=== PATIENT | male | born 1975 | race Caucasian/White ===

== ENCOUNTER 2020-11-26 13:35 | Emergency (ER) | payer BC, SELFPAY ==
--- NOTE | ~2020-11-26 | CT_ITS ---
EXAMINATION: CT cervical spine wo con DATE: 11/26/2020 14:38 INDICATION: Neck pain as well as pain, numbness and tingling at the left elbow TECHNIQUE: Computed tomography (CT) of the cervical spine was performed without intravenous contrast. Automated exposure control and iterative reconstruction technique were employed. The dose-length pro duct was 453.71 mGy-cm. COMPARISON: None FINDINGS: 1-2 mm retrolisthesis C4 on C5. Chronic appearing anterior wedging at C4, C5 and T1 with 20% anterior vertebral body height loss. No acute fracture. Moderate disc height loss at C5-C6 and C6-C7. Mild to moderate disc height loss at C4-C5 and disc height loss at C2-C3 and C3-C4 and in the upper thoracic spine. Suggestion of a 3 x 1.8 cm slightly hypodense left thyroid mass. Cervical soft tissues are ot herwise unremarkable. Visualized airway and apices of lungs are clear. The following disc levels are specifically discussed: C2-C3: The disc does not extend beyond the endplate margin. There is mild bilateral uncovertebral china nt osteoarthritis. There is mild bilateral facet joint osteoarthritis. There is no neural foraminal s tenosis. There is no central canal stenosis. C3-C4: Disc is mildly bulging. There is moderate bilateral uncovertebral joint osteoarthritis. There is mild bilateral facet joint osteoarthritis. There is mild bilateral neural foraminal stenosis. Ther e is minimal central canal stenosis. C4-C5: Disc is bulging. There is moderate right and severe left uncovertebral joint osteoarthritis. T here is mild bilateral facet joint osteoarthritis. There is moderate right and mild to moderate left neural foraminal stenosis. There is mild central canal stenosis. C5-C6: Disc is bulging. There is moderate left and severe right uncovertebral joint osteoarthritis. T here is mild bilateral facet joint osteoarthritis. There is mild left and mild to moderate right neur al foraminal stenosis. There is mild central canal stenosis. C6-C7: Disc is bulging. There is mild right and moderate left uncovertebral joint osteoarthritis. The re is mild left and mild to moderate right facet joint osteoarthritis. There is mild left and minimal right neural foraminal stenosis. There is mild central canal stenosis. C7-T1: The disc does not extend beyond the endplate margin. There is no uncovertebral joint osteoarth ritis. There is mild to moderate bilateral facet joint osteoarthritis. There is no neural foraminal s tenosis. There is no central canal stenosis. IMPRESSION: 1. Chronic appearing mild anterior wedging at C4, C5 and T1. No acute osseous abnormality. 2. Mild to moderate cervical spondylosis. Reviewed, dictated and finalized at location A. IMPRESSION: 1. Chronic appearing mild anterior wedging at C4, C5 and T1. No acute osseous a bnormality. 2. Mild to moderate cervical spondylosis.
[2020-11-26 13:56] VITALS: BP 158/104; PULSE 108; RESP 18; TEMP 37.1; O2SAT 96
--- NOTE | 2020-11-26 15:11 | ED.GENADULT ---
HPI - General Adult General Chief complaint: Extremity Problem,Nontraumatic <Jovan Lopez PA-C - Last Filed: 11/26/20 16:36> Stated complaint: left arm pain <Jovan Lopez PA-C - Last Filed: 11/26/20 16:36> Time Seen by Provider: 11/26/20 14:01 <Jovan Lopez PA-C - Last Filed: 11/26/20 16:36> Source: patient, RN notes reviewed and old records reviewed <Jovan Lopez PA-C - Last Filed: 11/26/20 16:36> Mode of arrival: ambulatory <Jovan Lopez PA-C - Last Filed: 11/26/20 16:36> Limitations: no limitations <Jovan Lopez PA-C - Last Filed: 11/26/20 16:36> History of Present Illness HPI narrative: Patient is a 45-year-old male who presents to emergency department for evaluation of neck pain patient notes he has had this pain for over a week he states that she developed the pain which is localized to the left elbow to the shoulder and up into the paraspinal cervical thoracic region denies injury or trauma has been taking steroids and muscle relaxers which she was given at an urgent care with minimal improvement he denies similar occurrence in the past injury or trauma presents nondistressed <Jovan Lopez PA-C - Last Filed: 11/26/20 16:36> Review of Systems Review of Systems: All systems reviewed & are unremarkable except as noted in HPI and below <Jovan Lopez PA-C - Last Filed: 11/26/20 16:36> PMFSH Social History Social History: Social History (Updated 11/26/20 @ 16:21 by Jovan Lopez PA-C) Smoking status: Never smoker <Jovan Lopez PA-C - Last Filed: 11/26/20 16:36> Exam Narrative: GENERAL: Well-appearing, well-nourished, and in no acute distress. HEAD: Normocephalic, atraumatic. EYES: PERRLA and EOMI. ENT: Nares clear, no rhinorrhea or epistaxis. Mucous membranes moist. NECK: Supple. No adenopathy or masses. CHEST: Clear to auscultation. No respiratory distress. No wheezes rales or rhonchi HEART: Regular rate and rhythm. No murmur heard. Normal peripheral pulses. EXTREMITIES: Normal range of motion. No edema. No deformity of the elbow shoulder or paraspinal cervical or thoracic musculature SKIN: Warm, dry, no rash. NEURO: No focal deficits. Alert and oriented x3. Cranial nerves II through XII grossly intact. Motor and sensory intact and symmetrical in extremities PSYCH: Normal mood and affect. <CLAIRE Srivastava Last Filed: 11/26/20 16:36> Course Course Emergency Course: Patient in the room nondistressed aware of case findings treatment plan and diagnosis agreeing to follow-up as instructed pain seems likely musculoskeletal in nature could be cervical or thoracic radiculopathy he has no deformities no other concerning findings will be discharged home with outpatient follow-up will have his medications changed imaging was unremarkable he agrees with this treatment plan <CLAIRE Srivastava Last Filed: 11/26/20 16:36> Vital Signs Vital signs: Vital Signs Temperature 98.7 F 11/26/20 13:56 Pulse Rate 108 H 11/26/20 13:56 Respiratory Rate 18 11/26/20 13:56 Blood Pressure 158/104 H 11/26/20 13:56 Pulse Oximetry 96 11/26/20 13:56 Temperature 98.7 F 11/26/20 13:56 Pulse Rate 102 H 11/26/20 16:00 Respiratory Rate 14 11/26/20 16:00 Blood Pressure 151/102 H 11/26/20 16:00 Pulse Oximetry 99 11/26/20 16:00 <CLAIRE Srivastava Last Filed: 11/26/20 16:36> Medical Decision Making MDM Narrative Medical decision making narrative: Patients injury or pain is consistent with musculoskeletal etiology. No signs of neurological or vascular compromise on exam. Compartments and tisues are soft without signs of compartment syndrome. Pain is felt appropriate for further evaluation on an outpatient basis. <CLAIRE Srivastava Last Filed: 11/26/20 16:36> Vital Signs Vital Signs: Vital Signs Temperature 98.7 F 11/26/20 13:56 Pulse Rate 108 H 11/26/20 13:5
[2020-11-26 16:00] VITALS: BP 151/102; PULSE 102; RESP 14; O2SAT 99
== END 2020-11-26 16:44 | disposition home or self-care (01) ==
PROVIDERS: Emergency Provider General Practice
DX: M54.6 Pain in thoracic spine (principal); M79.602 Pain in left arm; M47.812 Spondylosis without myelopathy or radiculopathy, cervical region
CPT/HCPCS: 72125; 99284

== ENCOUNTER 2021-04-05 09:37 | Outpatient (CLI) | payer BC, SELFPAY ==
--- NOTE | 2021-04-05 11:00 | NEURO_ITS ---
Impression: # Complains of left hand intermittent numbness. # Normal nerve conduction study. # No evidence of Carpal Tunnel Syndrome or ulnar neuropathy at this stage. # Needle/EMG exam not requested. Nerve Conduction Studies Anti Sensory Summary Table Stim Site NR Peak (ms) P-T Amp (?V) Site1 Site2 Delta-P (ms) Dist (cm) Guido (m/s) Left Median Anti Sensory (2-3nd Digit) Wrist 2.8 57.1 Wrist 2-3nd Digit 2.8 14.0 50 Wrist 2.7 46.2 Wrist 2-3nd Digit 2.8 14.0 50 Right Median Anti Sensory (2-3nd Digit) Wrist 2.9 68.6 Wrist 2-3nd Digit 2.9 14.0 48 Wrist 2.8 53.4 Wrist 2-3nd Digit 2.9 14.0 48 Left Radial Anti Sensory (Base 1st Digit) Wrist 1.9 13.0 Wrist Base 1st Digit 1.9 0.0 Right Radial Anti Sensory (Base 1st Digit) Wrist 2.1 13.6 Wrist Base 1st Digit 2.1 0.0 Left Ulnar Anti Sensory (5th Digit) Wrist 2.4 43.1 Wrist 5th Digit 2.4 14.0 58 Right Ulnar Anti Sensory (5th Digit) Wrist 2.6 39.3 Wrist 5th Digit 2.6 14.0 54 Motor Summary Table Stim Site NR Onset (ms) O-P Amp (mV) Site1 Site2 Delta-0 (ms) Dist (cm) Guido (m/s) Left Median Motor (Abd Poll Brev) Wrist 3.0 3.9 Elbow Wrist 5.2 31.0 60 Elbow 8.2 3.0 Right Median Motor (Abd Poll Brev) Wrist 3.1 3.0 Elbow Wrist 5.3 32.0 60 Elbow 8.4 2.0 Left Ulnar Motor (Abd Dig Minimi) Wrist 2.4 6.0 A Elbow Wrist 5.3 32.0 60 A Elbow 7.7 5.1 Right Ulnar Motor (Abd Dig Minimi) Wrist 2.9 4.9 A Elbow Wrist 5.5 33.0 60 A Elbow 8.4 3.8 F Wave Studies NR F-Lat (ms) L-R F-Lat (ms) Left Median (Mrkrs) (Abd Poll Brev) 27.80 0.80 Right Median (Mrkrs) (Abd Poll Brev) 28.59 0.80 Left Ulnar (Mrkrs) (Abd Dig Min) 28.36 0.16 Right Ulnar (Mrkrs) (Abd Dig Min) 28.20 0.16 MTDD
== END 2021-04-05 09:38 | disposition home or self-care (01) ==
PROVIDERS: PCP Family Medicine; Visit Provider Family Medicine
DX: R20.2 Paresthesia of skin (principal)
CPT/HCPCS: 95911

== ENCOUNTER 2022-05-23 07:03 | Outpatient (CLI) | payer BC, SELFPAY ==
--- NOTE | ~2022-05-23 | MR_ITS ---
EXAMINATION: MR foot LT wo con DATE: 05/23/2022 07:37 INDICATION: Left foot pain TECHNIQUE: Magnetic resonance imaging (MRI) of the left fore/mid foot was performed without intraveno us contrast. Sequences included sagittal T1-weighted FSE, sagittal fluid sensitive FSE STIR, coronal PD-weighted FS FSE, coronal T1-weighted FSE, axial PD-weighted FS FSE, and axial PD-weighted FSE. COMPARISON: None FINDINGS: Bone alignment is normal. No fracture or pathologic marrow replacing process. Moderate to severe nonu niform joint space narrowing at the first metatarsophalangeal joint with subarticular edema-like sign al changes at both sides of the joint space and moderate-sized marginal osteophytes at the head of th e first metatarsal base of the first proximal phalanx. There is also likely degenerative subarticular cystic change at the fibular sesamoid of the first metatarsal. This osteochondral body versus hetero topic ossification situated between the lateral head of the first metatarsal and the deep margin of t he lateral collateral ligament complex. Likely reactive synovitis and small joint effusion at the kathleen eloy plantar recess of the first metatarsophalangeal joint. Additional mild polyarticular osteoarthrit is at many of the tarsal metatarsal and interphalangeal and remaining metacarpophalangeal joints with out additional joint effusions. The Lisfranc ligament complex is normal. The collateral ligament comp rigo at the metatarsophalangeal and interphalangeal joints are normal. The flexor and extensor tendons are normal. IMPRESSION: 1. 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 Reviewed, dictated and finalized at location A.
== END 2022-05-23 07:04 ==
PROVIDERS: PCP Family Medicine; Visit Provider Nurse Practitioner Adult Health
DX: M25.572 Pain in left ankle and joints of left foot (principal); M19.072 Primary osteoarthritis, left ankle and foot
CPT/HCPCS: 73718

== ENCOUNTER 2022-06-14 05:36 | Day surgery (SDC) | payer BC, SELFPAY ==
[2022-06-06 13:15] VITALS: BMI 29.7
--- NOTE | 2022-06-13 20:35 | P.HP_ITS ---
History of Present Illness History of Present Illness Consent: Risks, benefits, and alternatives have been discussed and questions answered. Patient agrees to proceed with procedure. Chief complaint: hemorrhage of anus and rectum Narrative: Devendra Ayoub is a 47 year old male [facility] to leona franklin in stool Review of Systems Review of Systems: All systems reviewed & are unremarkable except as noted in HPI and below PMFSH Social History Social History Smoking status: Never smoker Alcohol intake: current Alcohol use details: rarely Substance use: never Substance use type: does not use Living arrangements: alone Spiritual care concerns: No Meds Home Medications and Allergies Home Medications Medication Instructions Recorded Confirmed Type naproxen 500 mg tablet 500 mg PO BID PRN pain #7 tabs 11/26/20 06/06/22 Rx diazepam 5 mg tablet (Valium) 5 mg PO TID PRN for dental 06/06/22 06/06/22 History procedure duloxetine 60 mg capsule,delayed 60 mg PO DAILY 06/06/22 06/06/22 History release emtricitabine 200 mg-tenofovir 1 tablet PO DAILY 06/06/22 06/06/22 History disoproxil fumarate 300 mg tablet esomeprazole magnesium 40 mg 40 mg PO DAILY 06/06/22 06/06/22 History capsule,delayed release fenofibrate 54 mg tablet 54 mg PO DAILY 06/06/22 06/06/22 History phentermine 37.5 mg tablet 37.5 mg PO DAILY 06/06/22 06/06/22 History simvastatin 20 mg tablet 20 mg PO DAILY 06/06/22 06/06/22 History tadalafil 20 mg tablet 20 mg PO DAILY 06/06/22 06/06/22 History Allergies Allergy/AdvReac Type Severity Reaction Status Date / Time amoxicillin Allergy Hives Verified 06/14/22 10:11 Penicillins Allergy Hives Verified 06/14/22 10:11 Exam Const: General: alert Orientation/consciousness: patient oriented x3 Resp: Auscultation: clear to auscultation bilaterally Cardio: Rhythm: regular rhythm GI: GI Palp: Yes Soft to palpation and No Tenderness to palpation present (GI) Neuro: General: patient oriented x3 Assessment and Plan Assessment and plan (1) Blood in stool: Code(s): K92.1 - Melena Status: Acute Assessment and Plan: Colonoscopy with possible biopsy or polypectomy or cautery or injection of substances.
[2022-06-14 10:15] VITALS: BP 109/84; PULSE 100; RESP 18; TEMP 36.4; O2SAT 96
[2022-06-14] MEDS: LACTATED RINGERS 1,000 ML 150 ML IV CONT (10:27)
--- NOTE | 2022-06-14 10:49 | P.PNAN_ITS ---
Anes - Initial Pre Proc Eval Procedure: Operation Date: 06/14/22 11:15 Proposed Procedures p Colonoscopy - Gareth Alvarenga MD Date/Time: 06/14/22 10:49 Surgeon: Gareth Alvarenga MD Pre Op Diagnosis: hemorrhage of anus and rectum Patient Data Age: 47 Gender: M Height: 1.88 m Weight: 105.3 kg Last Vital Signs Temp 97.5 F L 06/14/22 10:15 Pulse 100 06/14/22 10:15 Resp 18 06/14/22 10:15 BP 109/84 06/14/22 10:15 Pulse Ox 96 06/14/22 10:15 O2 Del Method Room Air 06/14/22 10:15 Allergies Allergy/AdvReac Type Severity Reaction Status Date / Time amoxicillin Allergy Hives Verified 06/14/22 10:11 Penicillins Allergy Hives Verified 06/14/22 10:11 Home Medications Medication Instructions Recorded Confirmed Type naproxen 500 mg tablet 500 mg PO BID PRN pain #7 tabs 11/26/20 06/06/22 Rx diazepam 5 mg tablet (Valium) 5 mg PO TID PRN for dental 06/06/22 06/06/22 History procedure duloxetine 60 mg capsule,delayed 60 mg PO DAILY 06/06/22 06/06/22 History release emtricitabine 200 mg-tenofovir 1 tablet PO DAILY 06/06/22 06/06/22 History disoproxil fumarate 300 mg tablet esomeprazole magnesium 40 mg 40 mg PO DAILY 06/06/22 06/06/22 History capsule,delayed release fenofibrate 54 mg tablet 54 mg PO DAILY 06/06/22 06/06/22 History phentermine 37.5 mg tablet 37.5 mg PO DAILY 06/06/22 06/06/22 History simvastatin 20 mg tablet 20 mg PO DAILY 06/06/22 06/06/22 History tadalafil 20 mg tablet 20 mg PO DAILY 06/06/22 06/06/22 History Patient hx anesthesia problems: none Family hx anesthesia problems: none Results Review: All pre-operative results and documents have been reviewed as part of the pre- operative evaluation. [facility] Social History Social History Smoking status: Never smoker Alcohol intake: current Alcohol use details: rarely Substance use: never Substance use type: does not use Living arrangements: alone Spiritual care concerns: No Anes - Eval Final PreProcedure Day of Procedure 06/14/22 10:49 Patient weight: obese Heart: regular rate and rhythm Lungs: clear to auscultation Airway: Mallampati scale class II Neurological: alert and oriented Last oral intake: >/= 8 hours ASA classification: II Emergent: no Anesthetic plan: proceed Anesthesia type and monitoring: general GIVS and standard monitoring Results Review: All pre-operative results and documents have been reviewed as part of the pre- operative evaluation. Informed Consent: The patient's anesthetic plan and its attendant risks and benefits were discussed with the patient/family/POA. Questions were solicited and answers provided to the satisfaction of the patient/family/POA.
[2022-06-14 11:31] VITALS: BP 107/67; PULSE 89; RESP 13; O2SAT 96
[2022-06-14 11:41] VITALS: BP 109/73; PULSE 79; RESP 13; O2SAT 99
[2022-06-14 11:51] VITALS: BP 137/78; PULSE 78; RESP 18; O2SAT 99
== END 2022-06-14 12:06 | disposition home or self-care (01) ==
PROVIDERS: PCP Family Medicine; Visit Provider Internal Medicine Gastroenterology
PROC: 0DJD8ZZ Inspection of Lower Intestinal Tract, Via Natural or Artificial Opening Endoscopic (ICD-10-PCS; CPT 45378; principal; 2022-06-14 11:15)
DX: Z12.11 Encounter for screening for malignant neoplasm of colon (principal); K64.8 Other hemorrhoids; E66.9 Obesity, unspecified; Z68.29 Body mass index [BMI] 29.0-29.9, adult
CPT/HCPCS: 45378; J2704; J7120

== ENCOUNTER 2022-08-04 19:03 | Emergency (ER) | payer BC, SELFPAY ==
--- NOTE | ~2022-08-04 | XR_ITS ---
EXAM: XR ankle LT min 3V DATE: 08/04/2022 19:24 HISTORY: left medial ankle swelling-lump ? etiology . COMPARISON: None available. FINDINGS: Normal mineralization. No fracture or dislocation. No lytic or blastic lesion. Joint space s are mild degenerative change at the tibiotalar joint. Moderate plantar enthesopathy. No erosion or periosteal change. Medial soft tissue swelling. IMPRESSION: No acute osseous finding in the left ankle. Reviewed, dictated and finalized at location K.
[2022-08-04 19:12] VITALS: BP 129/77; PULSE 105; RESP 16; TEMP 37.4; O2SAT 99
--- NOTE | 2022-08-04 19:12 | ED.GENADULT ---
HPI - General Adult General Chief complaint: Extremity Injury, Lower Stated complaint: left ankle pain Time Seen by Provider: 08/04/22 19:12 Source: patient, RN notes reviewed and old records reviewed Mode of arrival: ambulatory Limitations: no limitations History of Present Illness HPI narrative: 47-year-old male presents to the [facility] with complaints of left ankle pain and swelling for 1 week. Unsure of injury. Has taken an ibuprofen and 1 hydrocodone for pain but states not helping the swelling. Onset (ago): week(s) (1) Related Data Home Medications Medication Instructions Recorded Confirmed emtricitabine 200 mg-tenofovir 1 tablet PO DAILY 06/06/22 08/04/22 disoproxil fumarate 300 mg tablet phentermine 37.5 mg tablet 37.5 mg PO DAILY 06/06/22 08/04/22 Allergies Allergy/AdvReac Type Severity Reaction Status Date / Time amoxicillin Allergy Intermediate Hives Verified 08/04/22 19:08 Penicillins Allergy Intermediate Hives Verified 08/04/22 19:08 Review of Systems Review of Systems: All systems reviewed & are unremarkable except as noted in HPI and below Constitutional: Constitutional: Reports no additional constitutional complaints Eyes: Eyes: Reports no additional eye complaints ENT: Reports system reviewed and no additional complaints, except as documented Cardiovascular: Cardiovascular: Reports no additional cardiovascular complaints, Denies chest pain and Denies dyspnea Respiratory: Respiratory: Reports no additional respiratory complaints, Denies chest congestion, Denies cough and Denies dyspnea Gastrointestinal: Gastrointestinal: Reports no additional gastrointestinal complaints, Denies abdominal pain, Denies nausea and Denies vomiting Musculoskeletal: Musculoskeletal: Reports no additional musculoskeletal complaints Integumentary/Breasts: Skin/Breast: Reports system reviewed and no additional complaints, except as docu Neurologic: Reports system reviewed and no additional complaints, except as documented Psychiatric: Psychiatric: Reports no additional psychiatric complaints Allergic/Immunologic: Allergic/Immunologic: Reports no additional allergic/immunologic complaints [facility] Social History Social History Smoking status: Never smoker Alcohol intake: current Alcohol use details: rarely Substance use: never Substance use type: does not use Living arrangements: alone Spiritual care concerns: No Comments At the time of my signature, I reviewed and agree with the nursing past medical, surgical, social, and family history. There is no relevant family history pertinent to the patient complaint. Exam Const: General: cooperative, healthy appearing, comfortable, no acute distress, well developed, alert and well nourished Nutritional Appearance: well nourished Orientation/consciousness: patient oriented x3 Limitations: no limitations HENMT: Head: normal to inspection Ears: hearing grossly normal bilaterally and external ears normal Face/Nose/Sinus: Normal external nose present, Normal nares present, Normal nasal mucous membranes and turbinates present and normal facial exam Face and sinus: normal facial exam Eyes: General: appearance normal, both eyes and all related structures Alignment and Position: alignment normal Periorbital: periorbital findings normal Pupils: Equal, round and reactive pupils present EOM: EOMs intact bilaterally Neck: Neck: normal visual inspection, full ROM, no lymphadenopathy and no meningeal signs Chest: Chest palpation & inspection: normal inspection of the chest Resp: Effort & Inspection: normal respiratory effort and able to speak in complete sentences Cardio: Rate: regular rate Rhythm: regular rhythm Back/Spine/Pelvis: Cervical Spine: cervical ROM normal Thoracic/Lumbar Spine: No thoracic spinal tenderness Skin: General skin exam: normal color and no rashes or lesions noted Lesions: no les
[2022-08-04 19:15] VITALS: BP 129/77; PULSE 105; RESP 16; TEMP 37.4; O2SAT 99
== END 2022-08-04 20:19 | disposition home or self-care (01) ==
PROVIDERS: Emergency Provider Nurse Practitioner
DX: M25.572 Pain in left ankle and joints of left foot (principal)
CPT/HCPCS: 73610; 99213; G0463

== ENCOUNTER 2022-12-08 19:06 | Emergency (ER) | payer BC, SELFPAY ==
[2022-12-08 19:16] VITALS: BP 139/83; PULSE 102; RESP 16; TEMP 37.6; O2SAT 98
--- NOTE | 2022-12-08 19:42 | ED.EYEPROB ---
HPI - Eye Problem General Chief complaint: Eye Problems Stated complaint: left eye red,painful Time Seen by Provider: 12/08/22 19:32 Source: patient and RN notes reviewed Mode of arrival: ambulatory Limitations: no limitations History of Present Illness HPI Narrative: Patient presents today with a 3 day history of left upper eyelid redness and swelling. He called his PCPs office, who called him in a prescription for tobramycin drops. He has been using them without relief. He has also tried warm compresses once or twice, and states symptoms have been worsening. Related Data Home Medications Medication Instructions Recorded Confirmed emtricitabine 200 mg-tenofovir 1 tablet PO DAILY 06/06/22 12/08/22 disoproxil fumarate 300 mg tablet fenofibrate 54 mg tablet 54 mg PO DAILY 12/08/22 12/08/22 simvastatin 20 mg tablet 20 mg PO DAILY 12/08/22 12/08/22 tobramycin 0.3 % eye drops See Rx Instructions .Route .COMPLEX 12/08/22 12/08/22 Allergies Allergy/AdvReac Type Severity Reaction Status Date / Time amoxicillin Allergy Intermediate Hives Verified 12/08/22 19:29 Penicillins Allergy Intermediate Hives Verified 12/08/22 19:29 Review of Systems Review of Systems: CONSTITUTIONAL: Denies body aches, fever, chills, or sweats. EYES: Denies visual changes, redness, or discharge.+ redness and swelling to the left upper eyelid ENT: Denies rhinorrhea, congestion, sore throat, or otalgia. CARDIOVASCULAR: Denies chest pain, palpitations, or edema. RESPIRATORY: Denies cough or dyspnea. GASTROINTESTINAL: Denies abdominal pain, nausea, vomiting, or diarrhea. GENITOURINARY: Denies dysuria or hematuria. SKIN: Denies rash, itching, or wounds. MUSCULOSKELETAL: Denies back pain, joint pain, or myalgia. NEUROLOGIC: Denies headache, numbness, tingling, or weakness. PSYCH: Denies depression or anxiety. [facility] Social History Social History Smoking status: Never smoker Alcohol intake: current Alcohol use details: rarely Substance use: never Substance use type: does not use Living arrangements: alone Spiritual care concerns: No Comments At time of signature, I have reviewed and agree with nursing past medical, surgical, social and family history unless otherwise noted. Please see nursing chart for further information. There is no relevant family history pertinent to the presenting complaint Exam Narrative: GENERAL: Well-appearing, well-nourished, and in no acute distress. HEAD: Normocephalic, atraumatic. EYES: EOMI. PERRL. Left eye: Conjunctiva normal. Moderate swelling to the lash line with tiny pustule. Tender to palpation. Right anal ENT: Mucous membranes pink and moist. NECK: Normal AROM. CHEST: No respiratory distress. EXTREMITIES: Normal range of motion. No edema. SKIN: Warm, dry, no rash. Capillary refill normal. Normal skin turgor. NEURO: No focal deficits. Alert and oriented x3. Gait steady. PSYCH: Normal affect. No signs of depression or anxiety. Course Course Level of Care: Express Care Visit Vital Signs Vital signs: Vital Signs Temperature 99.7 F H 12/08/22 19:16 Pulse Rate 102 H 12/08/22 19:16 Respiratory Rate 16 12/08/22 19:16 Blood Pressure 139/83 12/08/22 19:16 Pulse Oximetry 98 12/08/22 19:16 Oxygen Delivery Room Air 12/08/22 19:16 Temperature 99.7 F H 12/08/22 19:16 Pulse Rate 102 H 12/08/22 19:16 Respiratory Rate 16 12/08/22 19:16 Blood Pressure 139/83 12/08/22 19:16 Pulse Oximetry 98 12/08/22 19:16 Oxygen Delivery Room Air 12/08/22 19:16 Reviewed MDM - Eye Problem MDM Narrative Medical decision making narrative: Obvious stye to the lash line, with some mild surrounding cellulitis. As drops have not been helping, will start patient on a short course of Keflex to treat the infection. Patient has a follow-up appoint with his PCP next week. Differential Diagnosis Differ
== END 2022-12-08 19:48 | disposition home or self-care (01) ==
PROVIDERS: Emergency Provider Nurse Practitioner; PCP Family Medicine
DX: H00.014 Hordeolum externum left upper eyelid (principal)
CPT/HCPCS: 99213; G0463

== ENCOUNTER 2023-10-05 14:34 | Outpatient (CLI) | payer BC, SELFPAY ==
--- NOTE | ~2023-10-05 | XR_ITS ---
XR chest 2V 10/05/2023 15:00 Indication: Chronic cough Procedure: 2 view chest Comparison: No prior studies for comparison. Findings: Heart size normal. Right lung clear. Left basilar infiltrate, most likely atelectasis. No p leural effusion, edema or pneumothorax. Impression: 1: Left basilar infiltrate, most likely atelectasis. Reviewed, dictated and finalized at location B. Impression: 1: Left basilar infiltrate, most likely atelectasis.
== END 2023-10-05 14:35 | disposition home or self-care (01) ==
PROVIDERS: PCP Family Medicine; Visit Provider Registered Nurse
DX: R91.8 Other nonspecific abnormal finding of lung field (principal)
CPT/HCPCS: 71046

== ENCOUNTER 2023-11-15 15:23 | Outpatient (CLI) | payer BC, SELFPAY ==
--- NOTE | ~2023-11-15 | XR_ITS ---
CHEST RADIOGRAPH, PA AND LATERAL CLINICAL HISTORY: FLU CXR 10/05/23 . COMPARISON: 10/05/2023 TECHNIQUE: PA and lateral views of the chest. FINDINGS The cardiomediastinal silhouette is unremarkable. Interval resolution of the findings within the left lung base when compared with previous study. The lungs are now clear. Visualized osseous structures and soft tissues are unremarkable. IMPRESSION: No focal infiltrate or effusion. If clinical suspicion persists, cross-sectional imaging (noncontrast enhanced CT examination of the c hest) is suggested for further evaluation. Reviewed, dictated and finalized at location A. IMPRESSION: No focal infiltrate or effusion. If clinical suspicion persists, cross-sectional imaging (noncontrast enhanced C T examination of the chest) is suggested for further evaluation.
== END 2023-11-15 15:24 | disposition home or self-care (01) ==
LOC: MICIMG 15:24
PROVIDERS: PCP Registered Nurse; Visit Provider Registered Nurse
DX: J10.1 Influenza due to other identified influenza virus with other respiratory manifestations (principal)
CPT/HCPCS: 71046